=== PATIENT | male | born 1995 | race Caucasian/White ===

== ENCOUNTER 2018-05-24 09:35 | Observation (INO) | payer OTHER ==
[~2018-05-24] VITALS: Ht 188 cm; Wt 68.0 kg
[2018-05-24] MEDS ORDERED: ZOLP5 PO (09:45)
== END 2018-05-25 00:30 | disposition home or self-care (01) ==
LOC: ER 09:35 → EOR 09:36
PROVIDERS: ADMIT Emergency Medicine
DX: F32.9 Major depressive disorder, single episode, unspecified (principal)
CPT/HCPCS: 36415; 99285; G0378